=== PATIENT | male | born 1995 | race Caucasian/White ===

== ENCOUNTER 2019-04-22 03:15 | Emergency (ER) | payer MEDICAID ==
[~2019-04-22] VITALS: Ht 182.9 cm; Wt 117.9 kg
[2019-04-22 03:22] VITALS: BP 140/92
== END 2019-04-22 04:00 | disposition home or self-care (01) ==
LOC: ER 03:18
DX: R19.7 Diarrhea, unspecified (principal); F17.200 Nicotine dependence, unspecified, uncomplicated